=== PATIENT | male | born 1955 | race Caucasian/White ===

== ENCOUNTER → 2017-09-08 | Outpatient (CLI) | payer OTHER | LOC: M CARPUL 10:27 | DX: I10 Essential (primary) hypertension (principal) | CPT/HCPCS: 93306 ==

== ENCOUNTER 2019-03-23 11:58 | Emergency (ER) | payer MEDICARE, OTHER ==
[~2019-03-23] VITALS: Ht 177.8 cm; Wt 93.3 kg
--- NOTE | 2019-03-23 12:43 | REP ---
PA and lateral chest: Comparison is 06/13/2013. The previous bilateral infiltrates have resolved. Lung mcbride are clear. The cardiac size is normal. The son, mediastinum, and skeletal structures are. Impression: There are no acute cardiopulmonary findings. The previous bilateral infiltrates have resolved. Electronically Signed by Alex Banegas MD 03/23/2019 12:34 P
[2019-03-23 15:07] LABS: INFLUENZA A AMPLIFICATION NEGATIVE (NEGATIVE); INFLUENZA B AMPLIFICATION NEGATIVE (NEGATIVE)
[2019-03-23 15:54] LABS: BASO % 0.4 % (0.0-1.0); EOS % 0.1 % (0.0-3.0); HEMATOCRIT 50.7 % (42.0-52.0); HEMOGLOBIN 16.7 g/dl (13.5-17.5); LYMPH # 0.9 10^3/uL (1.5-5.0); LYMPH % 13.5 % (24.0-44.0); MEAN CORPUSCULAR HEMOGLOBIN 28.8 pg (27.0-33.0); MEAN CORPUSCULAR HGB CONC 32.9 g/dl (32.0-36.5); MEAN CORPUSCULAR VOLUME 87.4 fl (80.0-96.0); MONO # 0.4 10^3/uL (0.0-0.8); MONO % 5.5 % (0.0-5.0); NEUTROPHILS # 5.4 10^3/uL (1.5-8.5); NEUTROPHILS % 80.4 % (36.0-66.0); PLATELET COUNT, AUTOMATED 207 10^3/uL (150-450); WHITE BLOOD COUNT 6.8 10^3/uL (4.0-10.0)
[2019-03-23 16:14] LABS: MONO SCRN NEGATIVE (NEGATIVE)
[2019-03-23] MEDS ORDERED: ONDANSETRON 4MG/2ML VIAL (J2405) IV ONE (16:15)
[2019-03-23] MEDS ORDERED: NS 1,000 ML IV ONE (16:15)
[2019-03-23 17:39] LABS: BLOOD UREA NITROGEN 11 MG/DL (7-18); CALCIUM LEVEL 8.9 MG/DL (8.8-10.2); CARBON DIOXIDE LEVEL 23 MEQ/L (21-32); CHLORIDE LEVEL 110 MEQ/L (98-107); CREATININE FOR GFR 0.87 MG/DL (0.70-1.30); GLOMERULAR FILTRATION RATE > 60.0 (>49); GLUCOSE, FASTING 104 MG/DL (70-100); POTASSIUM SERUM 3.8 MEQ/L (3.5-5.1); SODIUM LEVEL 141 MEQ/L (136-145)
[2019-03-23] MEDS ORDERED: ONDA4TAB6 PO (17:56)
[2019-03-23 18:25] VITALS: BP 168/97
== END 2019-03-23 18:33 | disposition home or self-care (01) ==
LOC: M ED 11:58
DX: K29.70 Gastritis, unspecified, without bleeding (principal); I10 Essential (primary) hypertension; R05 Cough; R09.89 Other specified symptoms and signs involving the circulatory and respiratory systems; Z87.09 Personal history of other diseases of the respiratory system
CPT/HCPCS: 71046; 80048; 85025; 86308; 87502; 87798; 87880; 96374; 99284; J2405

== ENCOUNTER → 2020-02-24 | Outpatient (CLI) | payer MEDICARE, OTHER ==
[~2020-02-24] MED LIST: AMIT50TA PO; ATOR1TAB19 PO; CARV3.12 PO; ECOT81TA5 PO; ONDA4TAB6 PO
== END ==
LOC: M LABSMTC 08:53
PROVIDERS: ATTEND Anesthesiology
DX: Z01.812 Encounter for preprocedural laboratory examination (principal); Z20.828 Contact with and (suspected) exposure to other viral communicable diseases

== ENCOUNTER 2020-02-29 09:42 | Day surgery (SDC) | payer OTHER ==
[~2020-02-29] VITALS: Ht 172.7 cm; Wt 97.1 kg
[~2020-02-29 09:42] MED LIST changes: +NS 1,000 ML IV ONE
[2020-02-29] MEDS ORDERED: propofoL 200 MG/20 ML VIAL As Ordered ONE ×2 (10:49→10:50)
[2020-02-29] MEDS ORDERED: LIDOCAINE 2% 100MG/5ML SDV (FOR ANES.) As Ordered ONE (10:50)
--- NOTE | 2020-02-29 11:07 | ROOR ---
Patient Name: Oswaldo Murray Procedure Date: 02/29/2020 10:49 AM Date of : 1955 Age: 64 Room: [facility] Gender: Male Note Status: Finalized Procedure: Colonoscopy Indications: High risk colon cancer surveillance: Personal history of colonic polyps Providers: Norbert Berry Jr, MD Referring MD: [facility], [facility], Admin. Requesting Provider: Medicines: Propofol per Anesthesia Complications: No immediate complications. Procedure: Pre-Anesthesia Assessment: - Prior to the procedure, a History and Physical was performed, and patient medications and allergies were reviewed. The patient is competent. The risks and benefits of the procedure and the sedation options and risks were discussed with the patient. All questions were answered and informed consent was obtained. Patient identification and proposed procedure were verified by the physician and the nurse in the pre-procedure area and in the procedure room. Mental Status Examination: alert and oriented. Airway Examination: normal oropharyngeal airway and neck mobility. Respiratory Examination: clear to auscultation. CV Examination: normal. ASA Grade Assessment: II - A patient with mild systemic disease. After reviewing the risks and benefits, the patient was deemed in satisfactory condition to undergo the procedure. The anesthesia plan was to use moderate sedation / analgesia (conscious sedation). Immediately prior to administration of medications, the patient was re-assessed for adequacy to receive sedatives. The heart rate, respiratory rate, oxygen saturations, blood pressure, adequacy of pulmonary ventilation, and response to care were monitored throughout the procedure. The physical status of the patient was re-assessed after the procedure. The Colonoscope was introduced through the anus and advanced to the ileocecal valve. The colonoscopy was performed without difficulty. The patient tolerated the procedure well. The quality of the bowel preparation was adequate. Findings: The rectum, recto-sigmoid colon, descending colon, transverse colon, ascending colon, cecum and ileocecal valve appeared normal. A diminutive polyp was found in the splenic flexure. The polyp was removed with a cold snare. Resection and retrieval were complete. Multiple small-mouthed diverticula were found in the sigmoid colon. Non-bleeding external and internal hemorrhoids were found during perianal exam and during endoscopy. The hemorrhoids were large, Grade II (internal hemorrhoids that prolapse but reduce spontaneously) and Grade III (internal hemorrhoids that prolapse but require manual reduction). Impression: - The rectum, recto-sigmoid colon, descending colon, transverse colon, ascending colon, cecum and ileocecal valve are normal. - One diminutive polyp at the splenic flexure, removed with a cold snare. Resected and retrieved. - Diverticulosis in the sigmoid colon. - Non-bleeding external and internal hemorrhoids. Recommendation: - Discharge patient to home (ambulatory). - Repeat colonoscopy in 5 years for surveillance. Procedure Code(s): --- Professional --- 14951, Colonoscopy, flexible; with removal of tumor(s), polyp(s), or other lesion(s) by snare technique Diagnosis Code(s): --- Professional --- Z86.010, Personal history of colonic polyps K64.2, Third degree hemorrhoids K63.5, Polyp of colon K57.30, Diverticulosis of large intestine without perforation or abscess without bleeding CPT copyright 2019 [employer]. All rights reserved. The codes documented in this report are preliminary and upon car hiker review may be revised to meet current compliance requirements. Norbert Berry MD Norbert Berry Jr, MD 02/29/2020 11:07:38 AM Electronically signed by Norbert Berry Jr, MD Number of Addenda: 0 Note Initiated On: 02/29/2020 10:49 AM Estimated Blood Loss: Estimated blood loss: none.
[2020-02-29 11:30] VITALS: BP 146/98
== END 2020-02-29 11:58 | disposition home or self-care (01) ==
LOC: M OPP 09:42
PROVIDERS: ATTEND Surgery
DX: Z12.11 Encounter for screening for malignant neoplasm of colon (principal); Z86.010 Personal history of colon polyps; D12.6 Benign neoplasm of colon, unspecified; K57.30 Diverticulosis of large intestine without perforation or abscess without bleeding; K64.2 Third degree hemorrhoids; I10 Essential (primary) hypertension; E78.5 Hyperlipidemia, unspecified; M19.90 Unspecified osteoarthritis, unspecified site; Z79.82 Long term (current) use of aspirin; Z79.899 Other long term (current) drug therapy

== ENCOUNTER → 2024-04-27 | Outpatient (CLI) | payer OTHER ==
[~2024-04-27] MED LIST changes: -NS 1,000 ML IV ONE; +ONDA-282 PO; -ONDA4TAB6 PO
== END ==
LOC: M RAD 11:00
PROVIDERS: ATTEND Registered Nurse
DX: G90.09 Other idiopathic peripheral autonomic neuropathy (principal)

== ENCOUNTER → 2024-11-02 | Outpatient (REF) | payer OTHER, MEDICARE | LOC: M SMT 12:52 | PROVIDERS: ATTEND Physician Assistant | DX: N32.89 Other specified disorders of bladder (principal) ==

== ENCOUNTER → 2024-11-08 | Outpatient (REF) | payer MEDICARE ==
[2024-11-08 18:47] LABS: APPEARANCE, URINE HAZY (CLEAR); BACTERIA, URINE AUTO NEGATIVE (NEGATIVE); BILIRUBIN, URINE AUTO NEGATIVE (NEGATIVE); BLOOD, URINE BLOOD 3+ (NEGATIVE); GLUCOSE, URINE (UA) AUTO NEGATIVE (NEGATIVE); KETONE, URINE AUTO NEGATIVE (NEGATIVE); LEUKOCYTE ESTERASE, URINE AUTO NEGATIVE (NEGATIVE); NITRITE, URINE AUTO NEGATIVE (NEGATIVE); PROTEIN, URINE AUTO NEGATIVE (NEGATIVE); RBC, URINE AUTO TNTC /HPF (0-3); SPECIFIC GRAVITY URINE AUTO 1.010 (1.002-1.035); SQUAMOUS EPITHELIAL CELL UR AU 0 /HPF (0-6); UROBILINOGEN, URINE AUTO 0.2 mg/dL (0.0-2.0); WBC, URINE AUTO 9 /HPF (0-3)
== END ==
LOC: M LAB REF 15:25
PROVIDERS: ATTEND Urology
DX: R93.89 Abnormal findings on diagnostic imaging of other specified body structures (principal)

== ENCOUNTER → 2024-11-09 | Outpatient (CLI) | payer MEDICARE, MEDICAID ==
[2024-11-09 16:51] LABS: PLATELET COUNT, AUTOMATED 235 10^3/uL (150-450)
[2024-11-09 17:20] LABS: INR 0.98
[2024-11-09 17:21] LABS: ALT/SGPT 46.0 U/L (7.0-40); AST/SGOT 53.0 U/L (<34); CALCIUM LEVEL 9.1 MG/DL (8.3-10.6); CARBON DIOXIDE LEVEL 31.0 MMOL/L (20-31); CHLORIDE LEVEL 106.0 MMOL/L (98-107); CREATININE FOR GFR 1.29 MG/DL (0.70-1.30); GLOMERULAR FILTRATION RATE 59.7 (>42); POTASSIUM SERUM 4.5 MMOL/L (3.5-5.1); SODIUM LEVEL 141.0 MMOL/L (136-145)
== END ==
LOC: M PLALAB 14:21
PROVIDERS: ATTEND Urology
DX: R93.89 Abnormal findings on diagnostic imaging of other specified body structures (principal); R31.0 Gross hematuria

== ENCOUNTER → 2024-11-20 | Outpatient (CLI) | payer MEDICARE ==
[~2024-11-20] MED LIST changes: +ISOVUE-370 76% 100 ML VIAL ONE
== END ==
LOC: M PLAIMG 11:39
PROVIDERS: ATTEND Urology
DX: R93.89 Abnormal findings on diagnostic imaging of other specified body structures (principal)
CPT/HCPCS: 74177; Q9967

== ENCOUNTER 2025-01-29 09:34 | Day surgery (SDC) | payer MEDICARE, MEDICAID ==
[~2025-01-29] VITALS: Ht 177.8 cm; Wt 92.2 kg
[~2025-01-29 09:34] MED LIST changes: +CARV12.5 PO; +ISOVUE-300 61% 100 ML VIAL As Ordered ONE; -ISOVUE-370 76% 100 ML VIAL ONE; +PRAV40TA85 PO
[2025-01-29] MEDS ORDERED: ONDANSETRON 4MG/2ML VIAL As Ordered ONE (10:00)
[2025-01-29] MEDS ORDERED: LIDOCAINE 2% 100 MG/5 ML SDV (FOR ANES.) As Ordered ONE (10:00)
[2025-01-29] MEDS ORDERED: KETOROLAC 30 MG/ML 1 ML VIAL As Ordered ONE (10:01)
[2025-01-29] MEDS ORDERED: dexAMETHasone 4 MG/ML 1 ML VIAL As Ordered ONE (10:01)
[2025-01-29] MEDS ORDERED: ACETAMINOPHEN 1000MG/100ML IV BAG As Ordered ONE (10:03)
[2025-01-29] MEDS: LR 1,000 ML IV SCH (10:10)
[2025-01-29] MEDS: ceFAZolin SOD 2 GM IV ONCE IV ONE (11:16)
[2025-01-29] MEDS ORDERED: HYDROMORPHONE HCL 0.5 MG/0.5 ML SYRINGE IV PRN (12:25)
[2025-01-29] MEDS ORDERED: LR 1,000 ML IV SCH (12:25)
[2025-01-29] MEDS ORDERED: ONDANSETRON 4MG/2ML VIAL IV PRN (12:25)
[2025-01-29] MEDS ORDERED: PYRI1TAB5 PO (12:26)
[2025-01-29] MEDS ORDERED: MACR100C43 PO (12:26)
[2025-01-29] MEDS ORDERED: OXYB5TAB14 PO (12:26)
[2025-01-29 14:35] VITALS: BP 160/77; TEMP 97.6; O2SAT 96
== END 2025-01-29 14:58 | disposition home or self-care (01) ==
LOC: M SDC 09:34
PROVIDERS: ATTEND Urology
DX: C66.2 Malignant neoplasm of left ureter (principal); C67.5 Malignant neoplasm of bladder neck; N30.81 Other cystitis with hematuria; N13.30 Unspecified hydronephrosis; I10 Essential (primary) hypertension; E78.00 Pure hypercholesterolemia, unspecified; Z79.899 Other long term (current) drug therapy
CPT/HCPCS: 52240; 52332; 52354; 74420; 88305; 88307; C1769; C2617; J0131; J0688; J1100; J1885; J2405; J3010; Q9967

== ENCOUNTER → 2025-02-13 | Outpatient (CLI) | payer MEDICARE, MEDICAID ==
[~2025-02-13] MED LIST changes: -ISOVUE-300 61% 100 ML VIAL As Ordered ONE; +MACR100C43 PO; +OXYB5TAB14 PO; +PYRI1TAB5 PO
[2025-02-13 15:33] LABS: ALT/SGPT 20.0 U/L (7.0-40); AST/SGOT 26.0 U/L (<34); CALCIUM LEVEL 8.9 MG/DL (8.3-10.6); CARBON DIOXIDE LEVEL 31.0 MMOL/L (20-31); CHLORIDE LEVEL 106.0 MMOL/L (98-107); CREATININE FOR GFR 1.24 MG/DL (0.70-1.30); GLOMERULAR FILTRATION RATE 62.6 (>42); POTASSIUM SERUM 4.4 MMOL/L (3.5-5.1); SODIUM LEVEL 144.0 MMOL/L (136-145)
[2025-02-13 15:34] LABS: PSA SCREENING 19.91 NG/ML (< 4.00)
== END ==
LOC: M PLALAB 12:36
PROVIDERS: ATTEND Urology
DX: C66.2 Malignant neoplasm of left ureter (principal); C68.9 Malignant neoplasm of urinary organ, unspecified; Z12.5 Encounter for screening for malignant neoplasm of prostate
CPT/HCPCS: 36415; 80053; G0103